=== PATIENT | female | born 1945 | race Caucasian/White ===

== ENCOUNTER 2017-05-26 15:24 | Emergency (ER) | payer OTHER ==
[~2017-05-26] VITALS: Ht 165.1 cm; Wt 61.2 kg
[~2017-05-26 15:24] MED LIST: ALBU8.5H2 INH; CLON0.5T4 PO; FLUT16SP BNOSTRILS; LITH300T3 PO; NICO1PAT10 TD; OLAN10TA3 PO; OMEP20CA10 PO; PROP10TA10 PO; TIOT18CA3 IH; TRAZ-144 PO
--- NOTE | 2017-05-26 15:30 | NUR ---
PT CAME IN FROM [facility] FOR SOB X 1 MONTH. SATING AT 89 RA. REPORTS DAILY TOBACCO USE. SEEN BY MD FOR EVAL. SAFETY AND COMFORT MEASURES PROVIDED. WILL MONITOR.
--- NOTE | 2017-05-26 15:45 | NUR ---
IV ACCESS STARTED. BLOOD DRAWN FOR LABS. MEDICATED ORDERED.
[2017-05-26] MEDS ORDERED: methylPREDNISolone SOD SUCC 125 MG/2ML VIAL ONE (15:56)
[2017-05-26] MEDS ORDERED: IPRATROPIUM NEB FS 0.5 MG/2.5 ML AMPUL.NEB NEB ONE (16:00)
[2017-05-26] MEDS ORDERED: methylPREDNISolone SOD SUCC 125 MG/2ML VIAL IV ONE (16:00)
[2017-05-26] MEDS ORDERED: ALBUTEROL FS 2.5 MG/3 ML VIAL.NEB NEB ONE (16:00)
[2017-05-26] MEDS ORDERED: ALBUTEROL FS 2.5 MG/3 ML VIAL.NEB ONE (16:01)
[2017-05-26] MEDS ORDERED: IPRATROPIUM NEB FS 0.5 MG/2.5 ML AMPUL.NEB ONE (16:01)
[2017-05-26 16:21] LABS: BASOPHILS % (AUTO) 0.6 % (0.0-2.0); EOSINOPHILS % (AUTO) 0.6 % (0.0-6.0); HEMATOCRIT 40 % (33-45); HEMOGLOBIN 13.5 g/dL (11.5-14.8); LYMPHOCYTES # (AUTO) 1.1 /CMM (0.8-4.8); LYMPHOCYTES % (AUTO) 16.2 % (20.0-44.0); MEAN CORPUSCULAR HEMOGLOBIN 31 PG (26.0-33.0); MEAN CORPUSCULAR HGB CONC 34 g/dl (31.0-36.0); MEAN CORPUSCULAR VOLUME 91 fL (82-100); MONOCYTES # (AUTO) 0.5 /CMM (0.1-1.30); MONOCYTES % (AUTO) 7.8 % (2.0-12.0); NEUTROPHILS # (AUTO) 5.3 /CMM (1.8-8.9); NEUTROPHILS % (AUTO) 74.8 % (43.0-81.0); PLATELET COUNT (AUTO) 163 /CMM (150-450); RED BLOOD CELL COUNT(AUTO) 4.38 MIL/uL (4.0-5.2); WHITE BLOOD COUNT (AUTO) 6.9 K/uL (4.3-11.0)
[2017-05-26 16:30] LABS: CARBON DIOXIDE 32 mmol/L (21-32); CHLORIDE 107 mmol/L (98-107); CREATININE 1.1 mg/dL (0.6-1.3); GLUCOSE 100 mg/dL (74-106); POTASSIUM 4.5 mmol/L (3.5-5.1); SODIUM SERUM 144 mmol/L (136-145); UREA NITROGEN, BLOOD 21 mg/dL (7-18)
[2017-05-26 16:40] LABS: TROPONIN I < 0.017 ng/mL (0.00-0.056)
[2017-05-26 17:00] VITALS: BP 131/99
[2017-05-26] MEDS ORDERED: DIVA250T6 PO (17:01)
[2017-05-26] MEDS ORDERED: FLUT1DIS IH (17:01)
[2017-05-26] MEDS ORDERED: TIOT4MIS5 IH (17:01)
[2017-05-26] MEDS ORDERED: ALBU18HF2 IH (17:01)
[2017-05-26] MEDS ORDERED: LURA40TA PO (17:01)
[2017-05-26] MEDS ORDERED: MIRT30TA7 PO (17:01)
[2017-05-26] MEDS ORDERED: LORA0.5T PO (17:01)
[2017-05-26] MEDS ORDERED: ACET-2117 PO (17:01)
--- NOTE | 2017-05-26 18:00 | NUR ---
PROVIDED PT WITH FOOD TRAY PER REQUEST.
--- NOTE | 2017-05-26 18:37 | NUR ---
CALLED [facility], I NOTIFIED MIDDLEWARE CONSULTANT THAT PATIENT IS CLAIMING [facility], I PROVIDED PATIENT'S INITIAL TRIAGE AND VS, I ALSO NOTIFIED THEM THAT ER PHYSICIAN DR MONK IS READY TO PRESENT CASE TO [facility].
--- NOTE | 2017-05-26 19:23 | NUR ---
CALL FROM [facility]. PT ACCEPTED TO [facility] ER BY DR DEVRIES. # FOR REPORT [phone]. ETA 2015
--- NOTE | 2017-05-26 19:56 | NUR ---
[facility] AT BEDSIDE REPORT GIVEN.
--- NOTE | 2017-05-26 20:08 | NUR ---
REPORT CALLED TO [facility] COPING MACHINE OPERATOR NURSE.
== END 2017-05-26 20:10 | disposition short-term general hospital (02) ==
LOC: ER 15:26
DX: R06.02 Shortness of breath (principal); R09.02 Hypoxemia; J44.9 Chronic obstructive pulmonary disease, unspecified; F41.9 Anxiety disorder, unspecified; F31.9 Bipolar disorder, unspecified; Z87.891 Personal history of nicotine dependence
CPT/HCPCS: 36415; 71010; 80048; 83605; 84484; 85025; 87040 ×2; 87804; 93005; 94640 ×2; 96374; 99285; A4606; J2930; 87400; Z7610

== ENCOUNTER 2018-05-29 09:47 | Emergency (ER) | payer OTHER ==
[~2018-05-29] VITALS: Ht 152.4 cm; Wt 44.9 kg
[~2018-05-29 09:47] MED LIST changes: +ACET-2117 PO; +ALBU18HF2 IH; -ALBU8.5H2 INH; -CLON0.5T4 PO; +DIVA-76 PO; +FLUT1DIS IH; -LITH300T3 PO; +LORA0.5T PO; +LURA40TA PO; +MIRT30TA7 PO; -NICO1PAT10 TD; -OMEP20CA10 PO; -PROP10TA10 PO; -TIOT18CA3 IH; +TIOT4MIS5 IH; -TRAZ-144 PO
[2018-05-29 10:22] LABS: BASOPHILS # (AUTO) 0.1 /CMM (0.0-0.2); BASOPHILS % (AUTO) 0.8 % (0.0-2.0); EOSINOPHILS % (AUTO) 0.4 % (0.0-6.0); HEMATOCRIT 41 % (33-45); HEMOGLOBIN 13.4 g/dL (11.5-14.8); LYMPHOCYTES # (AUTO) 1.2 /CMM (0.8-4.8); LYMPHOCYTES % (AUTO) 17.2 % (20.0-44.0); MEAN CORPUSCULAR HGB CONC 33 g/dl (31.0-36.0); MEAN CORPUSCULAR VOLUME 91 fL (82-100); MONOCYTES # (AUTO) 0.5 /CMM (0.1-1.30); MONOCYTES % (AUTO) 7.7 % (2.0-12.0); NEUTROPHILS # (AUTO) 5.1 /CMM (1.8-8.9); NEUTROPHILS % (AUTO) 73.9 % (43.0-81.0); PLATELET COUNT (AUTO) 231 /CMM (150-450); RED BLOOD CELL COUNT(AUTO) 4.49 MIL/uL (4.0-5.2); WHITE BLOOD COUNT (AUTO) 6.9 K/uL (4.3-11.0)
[2018-05-29 10:29] LABS: CALCIUM, SERUM 9.4 mg/dL (8.5-10.1); CARBON DIOXIDE 31 mmol/L (21-32); CHLORIDE 104 mmol/L (98-107); CREATININE 0.8 mg/dL (0.6-1.3); GLUCOSE 92 mg/dL (74-106); POTASSIUM 3.9 mmol/L (3.5-5.1); SODIUM SERUM 138 mmol/L (136-145); UREA NITROGEN, BLOOD 11 mg/dL (7-18)
[2018-05-29 10:39] LABS: ALANINE AMINOTRANSFERASE 23 U/L (12-78); ALBUMIN 3.2 g/dL (3.4-5.0); ALKALINE PHOSPHATASE 114 U/L (46-116); ASPARTATE AMINOTRANSFERASE 22 U/L (15-37); BILIRUBIN,DIRECT 0.1 mg/dL (0.0-0.2); BILIRUBIN,TOTAL 0.4 mg/dL (0.2-1.0); TOTAL PROTEIN, SERUM 6.9 g/dL (6.4-8.2)
[2018-05-29 11:11] LABS: CREATINE KINASE, TOTAL 215 U/L (26-192)
--- NOTE | 2018-05-29 12:10 | NUR ---
PATIENT ADMITTED TO ER PATIENT AOX2, NONLABORED BREATHING NOTED ON ROOM AIR. DENYING HEADACHES AND DENYING DIZZINESS, PUPILS PERRLA, 3MM WITH SLUGGISH REACTION. C-COLLAR APPLIED IMMEDIATELY PER DR TOMAS'S ORDERS IV LINE INSERTED ON RIGHT FOREARM GAUGE 20 DR TOMAS NOTIFIED OF BLOOD SUGARS. PER DR TOMAS, OK TO GIVE PATIENT JUICE. PATIENT ABLE TO CONSUME 120 ML OF ORANGE JUICE. NO SIGNS OF ASPIRATION NOTED
--- NOTE | 2018-05-29 12:19 | NUR ---
CALLED [facility]
[2018-05-29] MEDS ORDERED: IV NS 0.9% 500 ML BAG IV ONE (12:30)
--- NOTE | 2018-05-29 12:53 | NUR ---
PT ADMIT TO [facility] Bailey YAN. RN TO RN REPORT [phone] [facility] ETA 1345 HOURS
[2018-05-29 13:04] LABS: APPEARANCE,URINE Clear (CLEAR); BILIRUBIN,URINE Negative (NEGATIVE); BLOOD, URINE Small Ery/uL (NEGATIVE); COLOR,URINE Yellow (YELLOW); KETONES,URINE Negative (NEGATIVE); LEUKOCYTE ESTERASE ,URINE Negative (NEGATIVE); NITRITE, URINE Negative (NEGATIVE); PH,URINE 8.5 (5.0-8.0); PROTEIN,URINE Negative (NEGATIVE); UGLUCOSE Negative (NEGATIVE); UROBILINOGEN,URINE 0.2 EU/dL (0.2)
[2018-05-29 13:21] LABS: BACTERIA,URINE Few /HPF (None Seen); WBC,URINE 0-2 /HPF (0-3)
[2018-05-29 13:22] LABS: SQUAMOUS EPITHELIAL CELL,UR Few /HPF (None Seen)
--- NOTE | 2018-05-29 13:39 | NUR ---
REPORT GIVEN TO EVANGELINA GALAVIZ RN AT [facility]
[2018-05-29 14:02] VITALS: BP 139/91
--- NOTE | 2018-05-29 14:05 | NUR ---
PATIENT PICKED UP BY AMBULANCE FOR TRANSFER TO [facility] ALL BELONGINGS WITH PATIENT. NONLABORED BREATHING NOTED ON ROOM AIR. PATIENT DENYING PAIN. BL0OD SUGAR RECHECKED AND NOTED TO BE 82, PATIENT CONSUMED ANOTHER 120 ML OF ORGANGE JUICE WITH NO SIGNS OF ASPIRATION. PATIENT PROVIDED WITH SNACKS. IV LINE ON RIGHT FOREARM PATENT AND INTACT GAUGE 20, AMBULANCE STAFF WELL HEAVY MACHINERY OPERATOR AT [facility] NOTIFIED PATIENT PROVIDED WITH ALL DIAGNOSTIC RECORDS WELL A IMAGING CD UNABLE TO REACH FAMILY TO PROVIDE OF UPDATE
--- NOTE | 2018-05-29 14:05 | NUR ---
PATIENT PICKED UP BY AMBULANCE FOR TRANSFER TO [facility] ALL BELONGINGS WITH PATIENT. NONLABORED BREATHING NOTED ON ROOM AIR. PATIENT DENYING PAIN. BL0OD SUGAR RECHECKED AND NOTED TO BE 82, PATIENT CONSUMED ANOTHER 120 ML OF ORGANGE JUICE WITH NO SIGNS OF ASPIRATION. PATIENT PROVIDED WITH SNACKS. IV LINE ON RIGHT FOREARM PATENT AND INTACT GAUGE 20, AMBULANCE STAFF WELL STUDENT RECORDS SPECIALIST AT [facility] NOTIFIED PATIENT PROVIDED WITH ALL DIAGNOSTIC RECORDS WELL A IMAGING CD UNABLE TO REACH FAMILY TO PROVIDE OF UPDATE C-COLLAR APPLIED PER DR TOMAS
== END 2018-05-29 14:13 | disposition short-term general hospital (02) ==
LOC: ER 09:55
DX: S00.03XA Contusion of scalp, initial encounter (principal); M25.551 Pain in right hip; R74.8 Abnormal levels of other serum enzymes; M25.512 Pain in left shoulder; G89.29 Other chronic pain; G31.9 Degenerative disease of nervous system, unspecified; J44.9 Chronic obstructive pulmonary disease, unspecified; F31.9 Bipolar disorder, unspecified; F17.200 Nicotine dependence, unspecified, uncomplicated; W18.39XA Other fall on same level, initial encounter; Y93.89 Activity, other specified; Y92.89 Other specified places as the place of occurrence of the external cause; Y99.8 Other external cause status
CPT/HCPCS: 36415; 70450-TC; 70486-TC; 71045-TC; 72125-TC; 73030-TC; 73502; 80048-TC; 80076-TC; 81000-TC; 82550-TC; 82962-TC; 84484-TC; 85025-TC; 85730-TC; 87086-TC; A4606; J7040; L0172; Z7610

== ENCOUNTER 2018-05-31 09:00 | Emergency (ER) | payer OTHER ==
[~2018-05-31] VITALS: Ht 152.4 cm; Wt 45.4 kg
--- NOTE | 2018-05-31 09:05 | NUR ---
BIB [facility], ALTERED W/ PINPOINT PUPILS/LOW RR WHICH INCREASED AFTER NARCAN INTRANASAL WAS GIVEN,BS=89
--- NOTE | 2018-05-31 09:53 | NUR ---
OCCUPATIONAL HEALTH PROFESSIONAL AT BEDSIDE
[2018-05-31] MEDS ORDERED: IV NS 0.9% 1,000 ML BAG IV ONE (10:00)
[2018-05-31 10:13] LABS: ABG BASE EXCESS 2.4 mmol/L; ABG OXYGEN SATURATION 97.2 % (92.0-98.5); ABG PCO2 48.2 mmHg (35.0-45.0); ABG PH 7.386 (7.350-7.450); ABG PO2 104.3 mmHg (75.0-100.0); AaDO2 125.5 mmHg; COHb 0.8 % (0.5-1.5); MetHb 0.4 % (0.0-1.5); SITE, ABG Right Radial; VENT MODE, BG 5LNC
[2018-05-31 10:27] LABS: BASOPHILS % (AUTO) 0.5 % (0.0-2.0); HEMATOCRIT 41 % (33-45); HEMOGLOBIN 13.8 g/dL (11.5-14.8); LYMPHOCYTES # (AUTO) 1.5 /CMM (0.8-4.8); LYMPHOCYTES % (AUTO) 20.4 % (20.0-44.0); MEAN CORPUSCULAR HGB CONC 34 g/dl (31.0-36.0); MEAN CORPUSCULAR VOLUME 91 fL (82-100); MONOCYTES # (AUTO) 0.7 /CMM (0.1-1.30); MONOCYTES % (AUTO) 8.9 % (2.0-12.0); NEUTROPHILS # (AUTO) 5.1 /CMM (1.8-8.9); NEUTROPHILS % (AUTO) 68.2 % (43.0-81.0); PLATELET COUNT (AUTO) 191 /CMM (150-450); RED BLOOD CELL COUNT(AUTO) 4.53 MIL/uL (4.0-5.2); WHITE BLOOD COUNT (AUTO) 7.4 K/uL (4.3-11.0)
[2018-05-31 10:35] LABS: CALCIUM, SERUM 9.2 mg/dL (8.5-10.1); CARBON DIOXIDE 30 mmol/L (21-32); CHLORIDE 109 mmol/L (98-107); CREATININE 0.7 mg/dL (0.6-1.3); GLUCOSE 94 mg/dL (74-106); POTASSIUM 4.2 mmol/L (3.5-5.1); SODIUM SERUM 144 mmol/L (136-145); UREA NITROGEN, BLOOD 11 mg/dL (7-18)
[2018-05-31 10:48] LABS: B-TYPE NATRIURETIC PEPTIDE 120 PG/ML (0-125)
--- NOTE | 2018-05-31 12:01 | NUR ---
URINE COLLECTED. PT TOLERATED PROCEDURE WELL.
[2018-05-31 12:54] LABS: APPEARANCE,URINE Clear (CLEAR); BILIRUBIN,URINE Negative (NEGATIVE); BLOOD, URINE Moderate Ery/uL (NEGATIVE); COLOR,URINE Yellow (YELLOW); KETONES,URINE Negative (NEGATIVE); LEUKOCYTE ESTERASE ,URINE Large (NEGATIVE); NITRITE, URINE Negative (NEGATIVE); PH,URINE 7.5 (5.0-8.0); PROTEIN,URINE Negative (NEGATIVE); UGLUCOSE Negative (NEGATIVE); UROBILINOGEN,URINE 0.2 EU/dL (0.2)
[2018-05-31 12:56] LABS: BACTERIA,URINE 1+ /HPF (None Seen); SQUAMOUS EPITHELIAL CELL,UR Few /HPF (None Seen)
[2018-05-31] MEDS ORDERED: CEFTRIAXONE 1GM BAG (ER ONLY) 50 ML IV ONE (13:29)
[2018-05-31] MEDS ORDERED: CEFTRIAXONE 1GM BAG (ER ONLY) 1 GM/50 ML PIGGYBACK IV ONE (13:30)
--- NOTE | 2018-05-31 13:44 | NUR ---
CALLED [facility] , EXPECTING A CALL BACK FROM [facility] [place]
--- NOTE | 2018-05-31 14:23 | NUR ---
PATIENT WILL BE TX TO [facility] ER ACCEPTED BY DR CHARLES [facility] ETA [id number]
--- NOTE | 2018-05-31 15:55 | NUR ---
GAVE REPORT TO CHARLES BARKER AT [facility].
--- NOTE | 2018-05-31 15:59 | NUR ---
TRANSFERED TO [facility]IA [facility] IN STABLE CONDITION.
[2018-05-31 16:01] VITALS: BP 138/81
== END 2018-05-31 16:02 | disposition short-term general hospital (02) ==
LOC: ER 09:02
DX: R62.7 Adult failure to thrive (principal); N39.0 Urinary tract infection, site not specified; J44.9 Chronic obstructive pulmonary disease, unspecified; F31.9 Bipolar disorder, unspecified; F17.200 Nicotine dependence, unspecified, uncomplicated; R94.31 Abnormal electrocardiogram [ECG] [EKG]
CPT/HCPCS: 36415; 36600; 71045-TC; 80048-TC; 81000-TC; 82962-TC; 83605-TC; 83880; 84484-TC; 85025-TC; 87086-TC; 87186-TC; A4606; J0696; J7030; Z7610